=== PATIENT | male | born 1975 ===

== ENCOUNTER 2017-04-03 23:43 | Emergency (ER) | payer BC ==
[2017-04-03 23:56] VITALS: BP 156/91; RESP 16; O2SAT 98
[2017-04-04] MEDS ORDERED: Sodium Chloride 0.9% 1,000 ML IV STA (00:32)
--- NOTE | 2017-04-04 01:16 | ED PDOC ---
HPI: General Adult Time Seen by Provider: 04/04/17 00:04 Chief Complaint (Nursing): Flu-like Symptoms Chief Complaint (Provider): Flu-like Symptoms History Per: Patient History/Exam Limitations: no limitations Onset/Duration Of Symptoms: Days (One) Have you had recent travel within the past 21 days to any of the following countries: [place], [place], [place] or [place]?: No Current Symptoms Are (Timing): Still Present Severity: Mild Additional Complaint(s): 42 y/o male presenting to the ED with fever, body aches, headache and sorethroat for one day. Patient states this morning he woke up with fever, chills, headache, sore throat, and nausea and denies diarrhea or vomiting. Patient reports taking ibuprofen with mild relief and states he has no travel history or known ill-person contact. Patient has a past medical history of neuropathy and gastritis. Past Medical History Reviewed: Historical Data, Nursing Documentation, Vital Signs Vital Signs: Last Vital Signs Temp 98.5 F 04/04/17 02:37 Pulse 87 04/04/17 02:37 Resp 16 04/03/17 23:53 BP 156/91 H 04/03/17 23:53 Pulse Ox 98 04/04/17 02:54 - Medical History PMH: Gastritis Other PMH: Neuropathy - Family History Family History: States: No Known Family Hx - Social History Current smoker - smoking cessation education provided: No Drugs: Denies - Allergies Allergies/Adverse Reactions: Allergies Allergy/AdvReac Type Severity Reaction Status Date / Time No Known Allergies Allergy Verified 04/03/17 23:52 Review of Systems ROS Statement: Except As Marked, All Systems Reviewed And Found Negative Constitutional: Positive for: Fever, Chills, Other ((+)Body Aches) ENT: Positive for: Throat Pain Gastrointestinal: Positive for: Nausea. Negative for: Vomiting, Diarrhea Neurological: Positive for: Headache Physical Exam - Reviewed Nursing Documentation Reviewed: Yes Vital Signs Reviewed: Yes - Physical Exam Appears: Positive for: Non-toxic, No Acute Distress Head Exam: Positive for: ATRAUMATIC, NORMAL INSPECTION, NORMOCEPHALIC Skin: Positive for: Normal Color, Warm, Dry ENT: Positive for: Other ((+)Injected Pharynx, Right-Sided Cervical Lymphadenopathy) Neck: Positive for: Normal, Painless ROM, Supple Cardiovascular/Chest: Positive for: Regular Rate, Rhythm. Negative for: Murmur Respiratory: Positive for: Normal Breath Sounds. Negative for: Respiratory Distress Extremity: Positive for: Normal ROM Neurologic/Psych: Positive for: Alert, Oriented. Negative for: Motor/Sensory Deficits - Laboratory Results Result Diagrams: 04/04/17 01:18 04/04/17 01:18 - ECG O2 Sat by Pulse Oximetry: 98 (RA) Pulse Ox Interpretation: Normal Medical Decision Making Medical Decision Making: Time: 31 Initial impression: Flu-like symptoms Initial plan: --EKG --CMP --LACT ACID, PLASMA --EKG-ED --CBC --ACETAMINOPHEN 975MG PO --FAMOTIDINE 20MG IV --KETOROLAC 10MG IV --SODIUM CHLORIDE 1,000ML 1,000MLS/HR --ONDANSETRON 4MG IV --BLOOD CULTURE --MONO --INFLUENZA A B --RAPID STREP GROUP 0230 Re-Evaluation: Patient labs reviewed by provider, no clinically significant abnormalities, patient notes market improvement in viral symptoms. Patient instructed to follow up with primary care provider in two days. Discharge Instructions: Patient feels better. Discussed results and plan with patient who expresses understanding. Counseling was provided regarding the diagnosis and prognosis. All questions answered and there is agreement with the plan to discharge home with instructions. Patient stable for discharge. Return if symptoms persist or worsen. Scribe Attestation: Documented by Tamiko Lau, acting as a scribe for Ousmane Gar MD. Scribe Attestation: All medical record entries made by the Scribe were at my direction and personally dictated by me. I have reviewed the chart and agree that the record accurately reflects my personal performance of the history, physical exam, medical decision making, and the department course for this patient. I have also personally directed, reviewed, and agree with the discharge instructions and disposition. Disposition - Clinical Impression Clinical Impression: Influenza-like symptoms - Patient ED Disposition Is Patient to be Admitted: No - Disposition Referrals: Israel Stoddard MD [Primary Care Provider] - Disposition: Routine/Home Disposition Time: 02:30 Condition: FAIR Instructions: Viral Syndrome (ED) Forms: [employer] (Polish) Print Language: NEPALI
[2017-04-04 01:21] LABS: BASO # 0.1 K/uL (0.0-0.2); BASO % 0.5 % (0.0-2.0); EOS % 0.2 % (0.0-4.0); HEMOGLOBIN 15.8 g/dL (12.0-18.0); LYMPH # 1.3 K/uL (1.0-4.3); LYMPH % 10.2 % (20.0-40.0); MEAN CELL VOLUME 90.1 fl (80.0-94.0); MEAN CORPUSCULAR HEMOGLOBIN 31.5 pg (27.0-31.0); MEAN CORPUSCULAR HGB CONC 34.9 g/dL (33.0-37.0); MEAN PLATELET VOLUME 8.2 fl (7.2-11.7); MONO # 1.1 K/uL (0.0-0.8); MONO % 8.8 % (0.0-10.0); NEUT # 10.3 K/uL (1.8-7.0); NEUT % 80.3 % (50.0-75.0); RBC 5.03 Mil/uL (4.40-5.90); WHITE BLOOD COUNT 12.8 K/uL (4.8-10.8)
[2017-04-04 01:38] LABS: ALB/GLOB RATIO 1.2 (1.0-2.1); ALBUMIN 4.4 g/dL (3.5-5.0); ALT/SGPT 46 U/L (21-72); AST/SGOT 30 U/L (17-59); BLOOD UREA NITROGEN 11 mg/dl (9-20); CALCIUM 9.3 mg/dL (8.4-10.2); GFR AFRICAN-AMERICAN > 60; GFR NON-AFRICAN AMERICAN > 60
[2017-04-04 02:38] VITALS: PULSE 87; TEMP 98.5
== END 2017-04-04 02:14 | disposition home or self-care (01) ==
LOC: H.ER 23:43
DX: B34.9 Viral infection, unspecified (principal)
CPT/HCPCS: 80053; 83605; 85025; 86308; 87040; 87070; 87430; 87804; 99282; J1885; J2405; J7040

== ENCOUNTER 2017-04-04 19:25 | Emergency (ER) | payer BC ==
[2017-04-04 20:11] VITALS: O2SAT 98
[2017-04-04] MEDS ORDERED: Dexamethasone 10 MG in Sodium Chloride 0.9% 50 ML IV ONE (20:25)
[2017-04-04] MEDS ORDERED: Sodium Chloride 0.9% 2,000 ML IV STA (20:26)
--- NOTE | 2017-04-04 21:15 | ED PDOC ---
HPI: General Adult Time Seen by Provider: 04/04/17 20:19 Chief Complaint (Nursing): Flu-like Symptoms Chief Complaint (Provider): Fever and sore throat History Per: Patient History/Exam Limitations: no limitations Additional Complaint(s): Patient is a 42 year old male with a history of right sided neck spasms presenting to the emergency department for fever that "comes and goes" and a sore throat since yesterday with difficulty swallowing. States that he went to the ED yesterday for the same symptoms where he received workup and was discharged home. Denies cough and difficulty breathing. PCP: Dr. Israel Stoddard Past Medical History Vital Signs: Last Vital Signs Temp 101.7 F H 04/04/17 20:06 Pulse 136 H 04/04/17 20:06 Resp 18 04/04/17 20:06 BP 158/104 H 04/04/17 20:06 Pulse Ox 98 04/04/17 21:41 - Medical History PMH: Gastritis - Family History Family History: States: Unknown Family Hx - Home Medications Home Medications: Ambulatory Orders Medication Instructions Recorded Amoxicillin 500 mg PO Q12 7 Days 04/04/17 Ibuprofen [Motrin Tab] 600 mg PO Q6 #30 tab 04/04/17 - Allergies Allergies/Adverse Reactions: Allergies Allergy/AdvReac Type Severity Reaction Status Date / Time No Known Allergies Allergy Verified 04/03/17 23:52 Review of Systems ROS Statement: Except As Marked, All Systems Reviewed And Found Negative Constitutional: Positive for: Fever ENT: Positive for: Other (Sore throat and difficulty swallowing) Respiratory: Negative for: Cough, Other (difficulty breathing) Physical Exam - Reviewed Nursing Documentation Reviewed: Yes Vital Signs Reviewed: Yes - Physical Exam Appears: Positive for: Well, Non-toxic, No Acute Distress Head Exam: Positive for: ATRAUMATIC, NORMAL INSPECTION, NORMOCEPHALIC Skin: Positive for: Normal Color, Warm, Dry Eye Exam: Positive for: Normal appearance ENT: Positive for: Pharyngeal Erythema, Tonsillar Exudate (Right). Negative for : Normal ENT Inspection Neck: Positive for: Painless ROM, Supple. Negative for: Normal (Tender LAD on R ) Cardiovascular/Chest: Positive for: Tachycardia. Negative for: Regular Rate, Rhythm Respiratory: Positive for: Normal Breath Sounds. Negative for: Accessory Muscle Use, Respiratory Distress Gastrointestinal/Abdominal: Positive for: Normal Exam, Bowel Sounds, Soft Back: Positive for: Normal Inspection Extremity: Positive for: Normal ROM Neurologic/Psych: Positive for: Alert, Oriented - Laboratory Results Result Diagrams: 04/04/17 21:30 04/04/17 21:30 - ECG O2 Sat by Pulse Oximetry: 98 (RA) Pulse Ox Interpretation: Normal Medical Decision Making Medical Decision Making: Time: 20:25 Initial impression: Viral pharyngitis versus strep Initial plan: Labs Tylenol 650 mg PO Normal Saline 2 L, 1 L/hr Rapid Strep Test Reevaluation 2230 Pt has 4/4 PECARN criteria, fever, and tachycardia. Vitals improving after medications and patient is feeling better. Will treat for strep throat and encourage f/u w/ PMD Dr. Stoddard. Return precautions given. Scribe Attestation: Documented by Tierney Hoyt, acting as a scribe for Wilber Jaeger MD. Provider Scribe Attestation: All medical record entries made by the Scribe were at my direction and personally dictated by me. I have reviewed the chart and agree that the record accurately reflects my personal performance of the history, physical exam, medical decision making, and the department course for this patient. I have also personally directed, reviewed, and agree with the discharge instructions and disposition. Disposition - Clinical Impression Clinical Impression: Fever, Strep throat - Disposition Referrals: Israel Stoddard MD [Medical Doctor] - Disposition: Routine/Home Disposition Time: 22:30 Condition: IMPROVED Prescriptions: Amoxicillin 500 mg PO Q12 7 Days Ibuprofen [Motrin Tab] 600 mg PO Q6 #30 tab Instructions: Pharyngitis (ED), Strep Throat (ED) Forms: [employer] (Turkish) Print Language: [place] RICAN
[2017-04-04 21:34] LABS: HEMOGLOBIN 14.9 g/dL (12.0-18.0); MEAN CELL VOLUME 90.5 fl (80.0-94.0); MEAN CORPUSCULAR HEMOGLOBIN 31.1 pg (27.0-31.0); MEAN CORPUSCULAR HGB CONC 34.3 g/dL (33.0-37.0); RBC 4.8 Mil/uL (4.40-5.90); WHITE BLOOD COUNT 13.8 K/uL (4.8-10.8)
[2017-04-04 21:50] LABS: BLOOD UREA NITROGEN 9 mg/dl (9-20); CALCIUM 9.1 mg/dL (8.4-10.2); GFR AFRICAN-AMERICAN > 60; GFR NON-AFRICAN AMERICAN > 60
[2017-04-05 00:03] VITALS: TEMP 98.4
[2017-04-05 00:07] VITALS: BP 108/73; PULSE 97; RESP 16
== END 2017-04-05 00:04 | disposition home or self-care (01) ==
LOC: H.ER 19:25
DX: J02.0 Streptococcal pharyngitis (principal); R13.10 Dysphagia, unspecified
CPT/HCPCS: 80048; 85027; 87070; 87430; 96361; 96374; 99282; J1100; J1885; J7040